=== PATIENT | female | born 1965 | race American Indian/Alaskan Native ===

== ENCOUNTER → 2019-02-23 10:19 | Outpatient (CLI) | payer OTHER, SELFPAY ==
[2019-02-23 11:48] LABS: Hemoglobin A1C% w Est Avg Glu 5.8 % (4.0-6.0)
[2019-02-23 12:18] LABS: Vitamin D 25 Hydroxy (D3) 31.1 ng/mL (30.0-100.0)
== END ==
PROVIDERS: PCP Student in an Organized Health Care Education/Training Program; Visit Provider Student in an Organized Health Care Education/Training Program
DX: E55.9 Vitamin D deficiency, unspecified (principal); E11.65 Type 2 diabetes mellitus with hyperglycemia
CPT/HCPCS: 36415; 82306; 83036

== ENCOUNTER → 2019-09-26 07:29 | Outpatient (CLI) | payer OTHER, SELFPAY ==
[2019-09-26 08:37] LABS: Cholesterol 217 mg/dL (140-199); HDL Cholesterol 46 mg/dL (40-60); LDL Cholesterol Calculated 121 mg/dL (<100); Triglycerides 252 mg/dL (35-150)
== END ==
PROVIDERS: PCP Student in an Organized Health Care Education/Training Program; Referring Provider Internal Medicine Cardiovascular Disease; Visit Provider Internal Medicine Cardiovascular Disease
DX: E78.5 Hyperlipidemia, unspecified (principal); E78.49 Other hyperlipidemia
CPT/HCPCS: 36415; 80061

== ENCOUNTER → 2020-02-13 16:23 | Outpatient (CLI) | payer OTHER, SELFPAY ==
[2020-02-13 17:13] LABS: Hemoglobin A1C% w Est Avg Glu 6.9 % (4.0-6.0)
[2020-02-13 17:46] LABS: Creatinine Urine Random 59.2 mg/dL
[2020-02-13 17:51] LABS: Microalbumin Urine Random < 0.6 mg/dL (0-1.6)
== END ==
PROVIDERS: PCP Student in an Organized Health Care Education/Training Program; Referring Provider Student in an Organized Health Care Education/Training Program; Visit Provider Student in an Organized Health Care Education/Training Program
DX: E11.9 Type 2 diabetes mellitus without complications (principal); I10 Essential (primary) hypertension
CPT/HCPCS: 36415; 82043; 82570; 83036

== ENCOUNTER → 2020-03-06 10:48 | Outpatient (CLI) | payer OTHER, SELFPAY ==
--- NOTE | 2020-03-06 10:49 | DI.MG.S_ITS ---
BILATERAL DIGITAL SCREENING MAMMOGRAM 3D/2D WITH CAD: 03/06/2020 CLINICAL: Routine screening. Comparison is made to exams dated: 04/25/2018 mammogram, 04/25/2017 mammogram, and 04/15/2016 mammogram - [facility]. The tissue of both breasts is heterogeneously dense. This may lower the sensitivity of mammography. Current study was also evaluated with a Computer Aided Detection (CAD) system. No significant masses, calcifications, or other findings are seen in either breast. There has been no significant interval change. IMPRESSION: NEGATIVE There is no mammographic evidence of malignancy. A 1 year screening mammogram is recommended. This exam was interpreted at Station ID: [id number]. NOTE: For mammograms, a report in lay terms will be sent to the patient. Approximately 15% of breast malignancies will not be visualized mammographically. In the management of a palpable breast mass, a negative mammogram must not discourage biopsy of a clinically suspicious lesion. Electronically Signed By: Yane galindo/asaf:03/06/2020 11:40:01 letter sent: Normal Exam ACR BI-RADS Category 1: Negative 3341F
== END ==
PROVIDERS: PCP Student in an Organized Health Care Education/Training Program; Referring Provider Student in an Organized Health Care Education/Training Program; Visit Provider Student in an Organized Health Care Education/Training Program
DX: Z12.31 Encounter for screening mammogram for malignant neoplasm of breast (principal)
CPT/HCPCS: 77063; 77067

== ENCOUNTER → 2020-03-19 09:22 | Outpatient (CLI) | payer OTHER, SELFPAY ==
[2020-03-19 10:33] LABS: COVID19 -Nasal RAPID Negative (Negative)
== END ==
PROVIDERS: PCP Student in an Organized Health Care Education/Training Program; Visit Provider Surgery
DX: Z01.812 Encounter for preprocedural laboratory examination (principal); Z20.822 Contact with and (suspected) exposure to COVID-19
CPT/HCPCS: 87635; C9803

== ENCOUNTER 2020-03-20 11:56 | Day surgery (SDC) | payer OTHER, SELFPAY ==
[2020-03-20 12:19] VITALS: BP 124/76; PULSE 90; RESP 16; TEMP 36.6; O2SAT 96; BMI 34.6
[2020-03-20] MEDS: LACTATED RINGERS 1,000 ML 200 ML IV (12:32)
--- NOTE | 2020-03-20 13:13 | PM.HP.1 ---
History of Present Illness History of Present Illness Date Patient Seen: 03/20/20 Time Patient Seen: 13:14 Chief complaint: SCREENING COLONOSCOPY Narrative: The patient presents for colorectal sreening. She had a prior colonoscopy 3 yrs ago notable for a large polyp. No personal or family history of colon cancer. On further history denies any recent gastrointestinal symptoms. No nausea, vomiting, abdominal pain, loss of appetite, unexplained weight loss, change in bowel habits, diarrhea, constipation, melena, hematochezia, or bright red blood per rectum. 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) Platinum teeth removed (~1981) Family & Social History Family History Mother Diabetes mellitus Hypertension Hyperlipidemia Stroke Grandfather History of heart disease Social History: household members significant other Tobacco & Substance use: Tobacco type cigarettes Smoking Status Current every day smoker Smoking packs per day 0.5 alcohol intake frequency a few times a week Substance Use Type does not use Meds Home Medications and Allergies Home Medications Medication Instructions Recorded Confirmed Type amlodipine 5 mg tablet 5 mg PO DAILY #90 tab 05/01/19 03/20/20 Rx losartan 100 mg tablet 100 mg PO DAILY #90 tab 05/16/19 03/20/20 Rx levalbuterol tartrate 45 2 inhalation INHALATION Q6H PRN 05/30/19 03/20/20 Rx mcg/actuation aerosol inhaler #15 gram rosuvastatin 5 mg tablet 2.5 mg PO DAILY tab 06/29/19 03/20/20 History metformin 500 mg tablet 500 mg PO BID #180 tab 03/11/20 03/20/20 Rx famotidine [Pepcid] 20 mg PO DAILY 03/20/20 03/20/20 History Allergies Allergy/AdvReac Type Severity Reaction Status Date / Time atorvastatin [From Lipitor] Allergy Intermediate throat Verified 02/23/19 09:40 swelling/muscle pain amoxicillin [From Augmentin] Allergy Mild light red Verified 02/23/19 09:32 color on body aspirin Allergy Mild stomach Verified 02/23/19 09:32 pain biotin Allergy Mild bumps on Verified 02/23/19 09:38 face,chest,arms/throat swelling heaviness in chest cephalexin Allergy Mild low blodd Verified 02/23/19 09:36 sugar clavulanic acid Allergy Mild light red Verified 02/23/19 09:32 [From Augmentin] color on body doxycycline Allergy Mild flush/red Verified 02/23/19 09:32 on face and body ezetimibe [From Zetia] Allergy Mild swelling/balance Verified 02/23/19 09:39 off hydrochlorothiazide Allergy Mild sob, Verified 02/23/19 09:32 tachycardia, headaches lisinopril Allergy Mild hyperventil Verified 02/23/19 09:32 ation simvastatin Allergy Mild severe Verified 02/23/19 09:41 muscle cramps,bodyaches, sulfamethoxazole Allergy Mild ph off, Verified 02/23/19 09:35 [From Septra] vaginal burning, itching trimethoprim [From Septra] Allergy Mild ph off, Verified 02/23/19 09:35 vaginal burning, itching hydrocodone AdvReac Intermediate Vomiting Verified 02/14/20 07:47 Review of Systems Review of Systems ROS: Yes All systems reviewed with the patient and are negative except as otherwise documented Exam Vital Signs (past 8 hours): - 03/20/20 12:19 Temperature 97.8 F Pulse Rate 90 Respiratory Rate 16 Blood Pressure 124/76 Pulse Oximetry 96 Oxygen Delivery Method Room Air Narrative Exam Narrative: General-no acute distress, obese female HEENT-moist mucous membranes, no scleral icterus Neck-supple, no lymphadenopathy Chest- non labored respirations, clear to auscultation bilaterally Cardiac-regular rate no peripheral edema Abdomen-soft, nontender, non distended Extremities-warm, well perfused Neurological-alert and oriented, no focal deficits Assessment & Plan Assessment and plan (1) Personal history of colonic polyps: Status: Acute Assessment & Plan narrative: The patient requires colorectal screening and colonoscopy is recommended. Technical details were discussed. Risks, benefits, alternatives explained. Risks including but not limited to myocardial infarction, aspiration, bleeding, pain, missed lesion, incomplete examination, need for further radiographic studies, colonic perforation, and need for major abdominal surgery were discussed. All questions were answered to their satisfaction, and they are in agreement with this plan.
[2020-03-20] MEDS: fentaNYL 250 MCG/5 ML INJ IV (13:54)
--- NOTE | 2020-03-20 13:54 | PM.OP.ENDO ---
Operative Date/Time/Diagnoses Date of procedure: 03/20/20 Time of procedure: 13:54 Pre-op diagnosis: personal history of colonic polyps Post-op diagnosis: same Procedure & Clinicians Study performed: colonoscopy Same procedure as scheduled: Yes Indications: 54-year-old woman personal history of colon polyps here for screening colonoscopy Surgeon: Theo Caraballo Procedure Notes Procedure in detail: Medications: Conscious sedation using 7mg IV midazolam and 250mcg IV of fentanyl The history and physical was performed/updated and the patient is ASA class is 2. The procedure was discussed in detail with the patient. Potential risks complications including infection, bleeding, missed diagnosis, perforation, need for surgery, and were explained. Their questions were answered and informed consent was obtained. Patient was brought to the procedure room and placed standard monitoring equipment. The patient's vital signs were monitored continuously throughout the entire procedure. Prior to starting time-out was performed. The patient was placed in the left lateral recumbent position. Procedural sedation was administered. Examination began with a thorough inspection of the perianal area there was no evidence of fissures, fistulae, external hemorrhoids or cutaneous malignancy. The colonoscopy scope was then placed into the anal canal and was advanced to the cecum, which was identified by the ileocecal valve, the appendiceal orifice and the confluence of the taenia. The scope was then slowly withdrawn examining colon thoroughly in all directions, irrigating it of any residual stool. No masses or polyps The patient tolerated the procedure well. They will be discharged once criteria are met. The prep was of good/excellent quality. The withdrawl time was 9 minutes. The sedation time was 27 minutes. Specimen(s): none sent Complications: none Impression: normal colonoscopy Post-procedure Recommendations: Colonscopy in 10 years Disposition: same day surgery
[2020-03-20] MEDS: MIDAZOLAM 5 MG/5 ML VIAL IV (13:55)
[2020-03-20 13:58] VITALS: BP 120/73; PULSE 78; RESP 16; TEMP 36.2; O2SAT 96
[2020-03-20 14:03] VITALS: BP 108/66; PULSE 79; RESP 14; O2SAT 96
[2020-03-20 14:07] VITALS: BP 108/67; PULSE 75; RESP 14; O2SAT 97
[2020-03-20 14:14] VITALS: BP 111/66; PULSE 79; RESP 16; O2SAT 98
== END 2020-03-20 14:49 | disposition home or self-care (01) ==
PROVIDERS: PCP Student in an Organized Health Care Education/Training Program; Referring Provider Surgery; Visit Provider Surgery
PROC: 0DJD8ZZ Inspection of Lower Intestinal Tract, Via Natural or Artificial Opening Endoscopic (ICD-10-PCS; CPT 45378; principal; 2020-03-20 13:00)
DX: Z12.11 Encounter for screening for malignant neoplasm of colon (principal); Z86.010 Personal history of colon polyps; F17.210 Nicotine dependence, cigarettes, uncomplicated
CPT/HCPCS: 45378; 99152; 99153; J2250; J3010

== ENCOUNTER → 2020-05-21 17:01 | Outpatient (CLI) | payer OTHER, SELFPAY ==
[2020-05-21 18:02] LABS: Hemoglobin A1C% w Est Avg Glu 6.4 % (4.0-6.0)
== END ==
PROVIDERS: PCP Student in an Organized Health Care Education/Training Program; Referring Provider Student in an Organized Health Care Education/Training Program; Visit Provider Student in an Organized Health Care Education/Training Program
DX: E11.9 Type 2 diabetes mellitus without complications (principal)
CPT/HCPCS: 36415; 83036

== ENCOUNTER → 2020-05-23 13:06 | Outpatient (CLI) | payer OTHER, SELFPAY ==
[2020-05-23] MEDS: COVID-19 VACC #1, MRNA(MOD) 100 MCG/0.5 ML VIAL IM (13:15)
== END ==
PROVIDERS: PCP Student in an Organized Health Care Education/Training Program; Visit Provider Internal Medicine
DX: Z23 Encounter for immunization (principal)
CPT/HCPCS: 0011A; 91301

== ENCOUNTER → 2020-06-20 13:20 | Outpatient (CLI) | payer OTHER, SELFPAY ==
[2020-06-20] MEDS: COVID-19 VACC #2, MRNA(MOD) 100 MCG/0.5 ML VIAL IM (13:27)
== END ==
PROVIDERS: PCP Student in an Organized Health Care Education/Training Program; Visit Provider Internal Medicine
DX: Z23 Encounter for immunization (principal)
CPT/HCPCS: 0012A; 91301

== ENCOUNTER → 2020-07-28 07:13 | Outpatient (CLI) | payer OTHER, SELFPAY ==
[2020-07-28 08:19] LABS: Hemoglobin A1C% w Est Avg Glu 6.2 % (4.0-6.0)
== END ==
PROVIDERS: PCP Student in an Organized Health Care Education/Training Program; Referring Provider Student in an Organized Health Care Education/Training Program; Visit Provider Student in an Organized Health Care Education/Training Program
DX: E11.9 Type 2 diabetes mellitus without complications (principal)
CPT/HCPCS: 36415; 83036

== ENCOUNTER → 2020-07-29 08:58 | Outpatient (CLI) | payer OTHER, SELFPAY ==
[2020-07-29 11:23] LABS: Hepatitis B Surface Antigen NEGATIVE s/c (NEGATIVE)
[2020-07-29 11:41] LABS: HIV 1 & 2 Ab/Ag 4th Gen Combo NEGATIVE (NEGATIVE); Hep C Virus Ab w/Reflex Quant NEGATIVE s/c (NEGATIVE)
[2020-07-29 12:47] LABS: Urine N gonorrhoeae NOT DETECTED
[2020-07-29 12:50] LABS: Urine Chlamydia NOT DETECTED
[2020-07-30 05:36] LABS: HSV 2 IGG AB < 0.91 index (0.00-0.90)
[2020-07-30 07:28] LABS: RPR Screen Non Reactive (Non Reactive)
[2020-07-30 20:38] LABS: HSV I/II IgM <0.91 Ratio (0.00-0.90)
== END ==
PROVIDERS: PCP Student in an Organized Health Care Education/Training Program; Referring Provider Registered Nurse; Visit Provider Registered Nurse
DX: Z20.2 Contact with and (suspected) exposure to infections with a predominantly sexual mode of transmission (principal)
CPT/HCPCS: 36415; 86592; 86694; 86695; 86696; 86803; 87340; 87389; 87491; 87591